=== PATIENT | female | born 1985 | race Caucasian/White ===

== ENCOUNTER → 2023-07-21 15:23 | Outpatient (CLI) | payer SELFPAY | PROVIDERS: PCP Physician Assistant; Visit Provider Physician Assistant | DX: R09.A2 Foreign body sensation, throat (principal) | CPT/HCPCS: 87070 ==

== ENCOUNTER → 2023-08-12 11:00 | Outpatient (CLI) | payer SELFPAY ==
[2023-08-12 19:19] LABS: Alanine Aminotransferase 22 IU/L (<35); Albumin 4.2 g/dL (3.5-5.0); Albumin Globulin Ratio 1.4 (1.0-2.8); Alkaline Phosphatase 51 U/L (38-126); Aspartate Aminotransferase 22 IU/L (14-36); BUN Creatinine Ratio 14.8 (6-22); Bilirubin Total 0.5 mg/dL (0.2-1.3); Blood Urea Nitrogen 9 mg/dL (7-17); Calcium 9.6 mg/dL (8.4-10.2); Carbon Dioxide 28 mmol/L (22-32); Chloride 104 mmol/L (98-107); Estimated Glomerular Filt Rate > 60 mL/min (>60); Glucose 98 mg/dL (70-100); HEMOLYSIS < 15 (0-50); Potassium 4.1 mmol/L (3.4-5.1); Sodium 138 mmol/L (137-145); Total Protein 7.2 g/dL (6.3-8.2)
[2023-08-12 19:25] LABS: Add Manual Diff / Slide Review NO; Basophils Absolute Auto 0 /uL (0-100); Eosinophils Absolute Auto 100 /uL (0-450); Eosinophils Percent Auto 1.5 % (2-4); Hemoglobin 12.3 g/dL (12.0-16.0); Lymphocytes Absolute Auto 1400 /uL (1100-4500); Lymphocytes Percent Auto 34.6 % (25-40); Mean Corpuscular HGB Conc 34.3 % (30-36); Mean Corpuscular Hemoglobin 30.1 PG (26-34); Mean Corpuscular Volume 87.8 fL (80-100); Monocytes Absolute Auto 400 /uL (0-900); Monocytes Percent Auto 8.8 % (3-14); Neutrophils Absolute Auto 2300 /uL (1500-7000); Neutrophils Percent Auto 54.1 % (50-75); Platelet Count 224 X10^3/uL (150-400); White Blood Cell Count 4.2 X10^3/uL (4.5-11.0)
[2023-08-12 19:47] LABS: TSH w/ Reflex to FT4 0.77 uIU/mL (0.47-4.68)
== END ==
PROVIDERS: PCP Physician Assistant; Visit Provider Physician Assistant
DX: G47.00 Insomnia, unspecified (principal); Z79.899 Other long term (current) drug therapy; L40.50 Arthropathic psoriasis, unspecified; R09.A2 Foreign body sensation, throat
CPT/HCPCS: 80053; 84443; 85025

== ENCOUNTER 2023-11-17 14:25 | Emergency (ER) | payer OTHER, SELFPAY ==
[2023-11-17] VITALS (8 sets, daily range): BP systolic 113–144; BP diastolic 59–80; PULSE 63–87; RESP 16–22; TEMP 36.8–37.1; O2SAT 98–100; BMI 23.8
--- NOTE | 2023-11-17 17:49 | PC.NURSE ---
On 11/03 patient pulled up her e-brake in her car and had sudden onset severe R clavicle pain. Since then she's had clavicle pain and starting 11/07 had tinnitus, hearing loss (R ear) and numbness on the R side of her face as well as deep aches in her chest. Health history includes a possible diagnosis of psoriatic arthritis.
--- NOTE | 2023-11-17 18:00 | ED_ITS ---
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 She states on November 03 she went to lift up the break in her car and with minimal effort noted severe pain in the right sternoclavicular joint that eventually developed quite a bit of swelling erythema tenderness. Symptoms progressed from there and by the she was developing tinnitus in the right ear which has progressed to the point that she has almost no hearing in the ear at all and describes very loud high-pitched tinnitus. She had seen her chiropractor did some gentle neck manipulation that did not change any of her symptoms. She is still having pain at the sternoclavicular joint, she is noticing numbness over the left side of her face including her forehead. When pressed, she does note that she has some mild paresthesia down the entire right side and describes a intermittent burning sensation localizing to the right hip area. She notes when she awakes in the morning she has significant numbness in the right upper extremity. She has not noticing any lower extremity abnormalities. On review of systems she notes she has had some mild swallowing difficulties predating the initial symptoms on the . She has a mild headache, she would dizziness initially but that is since resolved. No nausea, vomiting abdominal pain, syncope, chest pain, palpitations, abdominal pain Related Data Previous Rx's Medication Instructions Recorded propranolol 40 mg tablet 20 mg (1/2 x 40 mg) PO BID #30 tabs 08/05/23 zolpidem 5 mg tablet (Ambien) 5 mg PO BEDTIME PRN insomnia #10 08/12/23 tabs meloxicam 7.5 mg tablet 7.5 mg PO DAILY #30 tabs 08/19/23 dexamethasone 4 mg tablet 10 mg (2.5 x 4 mg) PO DAILY #5 tabs 11/17/23 Allergies Allergy/AdvReac Type Severity Reaction Status Date / Time cefixime Allergy Severe Anaphylaxis Verified 08/12/23 10:15 ciprofloxacin AdvReac Severe Vomiting Verified 08/12/23 10:15 Review of Systems Review of Systems Narrative: Pertinent positive and negative findings as per HPI Patient History Medical History (Updated 11/17/23 @ 21:23 by Laura Huertas MD) Plantar warts Eczema Osteoarthritis Asthma (~2014) Allergies (~2014) Migraines (~2011) ADHD Musculoskeletal pain Foot pain (~2021) Chronic back pain (~2009) Ankle pain (~2021) HSV-1 (herpes simplex virus 1) infection Tinnitus (~2011) Surgical History (Updated 07/25/23 @ 19:54 by Chela Hoang) Anesthesia History of laparoscopy (~2001) Family History (Updated 07/25/23 @ 19:58 by Chela Hoang) Father History of heart disease Cancer Hypertension Hyperlipidemia Mental health problem Mother Chronic gastritis Hyperlipidemia Hypertension Mental health problem Brother Hypertension Mental health problem PTSD (post-traumatic stress disorder) Sister Seizures Mental health problem Sister History of heart disease Mental health problem Schizophrenia Social History marital status: household members: spouse 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 Able to give a complete and coherent history. Well-nourished well-developed HEENT: Moist mucous membranes, normal sclera with reactive pupils, slight fullness along the entire right side of her neck compared to the left. Neck: No adenopathy, no carotid bruits. There is some fullness and tenderness to the right sternoclavicular joint. Decreased sensation to the right side of her face to fine touch. Respiratory: Lungs are clear to auscultation, no wheezing no rales no rhonchi. Full and symmetrical air movement Cardiac: Regular rate and rhythm no murmurs no bruits Abdomen: Soft, nontender, good bowel tones, no flank pain Skin: Warm and dry, no rashes Neurologic: Grossly neurologically intact with no obvious asymmetries or abnormalities. Right arm has full pulses throughout full range of motion of the arm not suggesting any type of vascular impingement Extremities: No trauma, well perfused Psych: Cooperative, appropriate insight and affect Course Orders Ordered: ED Orders 11/17/23 18:18 CT angio head and neck Stat 11/17/23 18:35 Complete Blood Count AUTO DIFF Stat Comprehensive Metabolic Panel Stat 11/17/23 19:58 MR head/brain wo/w con Stat Vital Signs Vital signs: Vital Signs - 8 hr 11/17/23 14:58 11/17/23 17:10 11/17/23 17:30 Temperature 98.4 F 98.3 F Pulse Rate 71 63 72 Respiratory Rate 16 16 22 Blood Pressure 139/80 118/59 L Pulse Oximetry 100 100 98 Oxygen Delivery Method Room Air Room Air 11/17/23 17:44 11/17/23 17:44 11/17/23 18:00 Temperature Pulse Rate 72 Respiratory Rate 20 Blood Pressure 128/74 113/70 Pulse Oximetry Oxygen Delivery Method 11/17/23 18:00 11/17/23 18:30 11/17/23 18:30 Temperature Pulse Rate 63 87 Respiratory Rate 18 21 Blood Pressure 144/75 H Pulse Oximetry 100 100 Oxygen Delivery Method 11/17/23 19:00 11/17/23 19:00 Temperature Pulse Rate 68 Respiratory Rate 18 Blood Pressure 115/71 Pulse Oximetry 98 Oxygen Delivery Method MDM - Headache Lab Data 11/17/23 18:35 11/17/23 18:35 Labs: Lab Results 11/17/23 Range/Units 18:35 WBC 7.8 (4.5-11.0) X10^3/uL RBC 4.26 (4.0-5.2) X10^6/uL Hgb 12.9 (12.0-16.0) g/dL Hct 37.4 (36-46) % MCV 87.8 (80-100) fL MCH 30.3 (26-34) PG MCHC 34.5 (30-36) % RDW 13.0 (11.6-14.8) % Plt Count 280 (150-400) X10^3/uL Neut % (Auto) 62.7 (50-75) % Lymph % (Auto) 29.5 (25-40) % Cherry % (Auto) 6.1 (3-14) % Eos % (Auto) 1.2 L (2-4) % Baso % (Auto) 0.5 (0-2) % Neut # (Auto) 4900 (2060-8116) /uL Lymph # (Auto) 2300 (5753-7351) /uL Cherry # (Auto) 500 (0-900) /uL Eos # (Auto) 100 (0-450) /uL Baso # (Auto) 0 (0-100) /uL Sodium 139 (137-145) mmol/L Potassium 3.7 (3.4-5.1) mmol/L Chloride 108 H (98-107) mmol/L Carbon Dioxide 24 (22-32) mmol/L BUN 16 (7-17) mg/dL Creatinine 0.68 (0.52-1.04) mg/dL Estimated GFR > 60 (>60) mL/min BUN/Creatinine Ratio 23.5 H (6-22) Glucose 85 (70-100) mg/dL Calcium 9.4 (8.4-10.2) mg/dL Total Bilirubin 0.4 (0.2-1.3) mg/dL AST 23 (14-36) IU/L ALT 16 (<35) IU/L Alkaline Phosphatase 73 (38-126) U/L Total Protein 8.1 (6.3-8.2) g/dL Albumin 4.6 (3.5-5.0) g/dL Globulin 3.5 (1.7-4.1) g/dL Albumin/Globulin Ratio 1.3 (1.0-2.8) Imaging Data CT angiogram head and neck: Radiologist's Impression: FINDINGS: Image quality: Limited by bolus timing, with venous contamination. There is streak artifact seen through the level of the shoulders. BRAIN: CSF spaces: Ventricles are normal in size and shape. Basal cisterns are patent. No extra-axial fluid collections. Brain: No significant abnormality of the brain can be seen. Skull and face: Calvarium and facial bones appear intact, without suspicious lesions. Orbits appear normal. Sinuses: Sinuses and mastoids are clear. HEAD CT ANGIOGRAPHY: Anterior circulation: Intracranial internal carotid arteries are normal in size and flow. The flow within the paired anterior cerebral arteries is normal and symmetric. The flow within the middle cerebral arteries is normal and symmetric. The anterior communicating artery is seen. No aneurysms are seen. Posterior circulation: Visualized portions of the vertebral arteries demonstrate normal caliber, and join to form a normal appearing basilar artery. Flow within the posterior cerebral arteries is normal and symmetric. No aneurysms are seen. NECK CT ANGIOGRAPHY: Carotid system: The great vessels demonstrate a conventional anatomy as they arise from the aortic arch. The origins of the common carotid arteries appear patent. The common carotid arteries demonstrate normal caliber and courses. The bifurcation regions are both widely patent. The internal carotid arteries demonstrate normal calibers and courses. Posterior circulation: The origins of the vertebral arteries both appear widely patent. The more superior extracranial portions of both vertebral arteries also demonstrate normal courses and calibers. The left vertebral artery is dominant to the right. Soft tissues: Visualized neck soft tissues demonstrate no suspicious abnormalities. Bones: No suspicious bony lesions. Visualized cervical spine appears normally aligned. Focal C6-C7 degenerative change can be seen. IMPRESSION: No imaging explanation is found for this patient's presenting symptoms. No significant intracranial arterial abnormality is seen. No significant abnormality is seen within the arteries of the neck. No findings of dissection can be seen. Any quantitative measurements of stenosis were performed using NASCET criteria. Dictated by: Alfred Burns M.D. on 11/17/2023 at 18:25 MRI brain: Radiologist's Impression: FINDINGS: Image quality: Excellent. CSF Spaces: Basal cisterns are patent. No extra-axial fluid collections. Ventricles are normal in size and shape. No abnormality or abnormal enhancement is seen in bilateral CP angles. Brain: No midline shift. No intracranial bleeds or masses. No abnormal intracranial enhancement. The brainstem appears normal. Diffusion-weighted images demonstrate no acute infarct. No chronic ischemic insults. Normal intravascular flow voids are present. Skull and face: Calvarial marrow is normal in signal. Orbits appear normal. Sinuses: Sinuses and mastoids appear clear. IMPRESSION: Unremarkable MRI examination of brain without and with contrast. No gross abnormality is seen in bilateral CP angles. Dictated by: Gabe Avalos M.D. on 11/17/2023 at 21:01 MDM Narrative Medical decision making narrative: CC: Progressive right neck, sternal and face paresthesias with progressive tinnitus Complicating co-morbidities: Otherwise healthy Data collected from: patient Medical records reviewed: Primary care notes from July Differential considered: Dissection, stroke, tumor or mass Exam documented above, pertinent findings include: Tinnitus with tympanic been brain unremarkable. Right side facial paresthesia without numbness. Pain at the sternoclavicular notch. Glove type distribution paresthesia to the right upper extremity Lab Test results independently reviewed as above. Pertinent findings: CBC is unremarkable Chemistries are reassuring Imaging studies independently reviewed: CT angiogram of the head and neck shows no obvious brain parenchymal abnormalities, intracranial hemorrhage and no obvious vascular abnormalities to explain her symptoms. MRI with and without of the brain does not show masses, tumors, obvious abnormalities or alternate explanations for her symptoms Treatments: 10 mg of dexamethasone Re-evaluations:8pm patient is updated on all initial findings. Understands need for MRI. Discussion: 38-year-old woman with 2 weeks of increasing right arm pain, pain at the sternoclavicular joint right side with some inflammation in the area and then paresthesias to the right side of her face and hearing loss with loud high- pitched tinnitus. CT angiogram of the head and neck as well as MRI of the brain show no obvious abnormality. Lab work is reassuring. No suggestion of stroke, mass, infection, vascular abnormality. All findings were shared with the patient. She is given the radiology reads of the imaging studies. She is given 10 mg of IV dexamethasone and will ask her to take an additional 10 mg on November 17 and November 18. We will suggest you follow up with her primary care physician and I suspect the next consultation should be back to rheumatology to see if there is a consolidating rheumatologic diagnosis to explain her symptoms. She is safe for discharge home Discharge Plan Departure Patient Disposition: Home Clinical Impression: Arm paresthesia, right, Facial paresthesia Tinnitus Qualifiers: Laterality: right Qualified Code(s): H93.11 - Tinnitus, right ear Activity Restrictions/Additional Instructions: Thank you for coming in today I can tell you with some confidence that you are not having a stroke, there are no masses or tumors in your brain or along your ear canal. There was no bleeding inside your brain and there are no vascular abnormalities or dissections that might explain your symptoms Unfortunately, I can not tell you what is causing the problem. I have given you 10 mg of IV dexamethasone and will suggest an additional 10 mg orally on November 17 and November 18. This likely will help with the inflammatory changes. 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 If you find that you are getting worse or develop any new symptoms, please feel free to return to the emergency department for further evaluation. Prescriptions: New dexamethasone 4 mg tablet 10 mg PO DAILY Qty: 5 0RF No Action propranolol 40 mg tablet 20 mg PO BID Qty: 30 0RF meloxicam 7.5 mg tablet 7.5 mg PO DAILY Qty: 30 3RF zolpidem [Ambien] 5 mg tablet 5 mg PO BEDTIME PRN (Reason: insomnia) Qty: 10 0RF Rx Instructions: may repeat once if no response in 30-60 minutes Referrals: Florencia Gautam PA-C [Primary Care Provider] - Stand Alone Forms: Patient Portal/API
--- NOTE | 2023-11-17 18:18 | DI.CT.S_ITS ---
PROCEDURE: CT ANGIO HEAD AND NECK INDICATIONS: Right-sided neck pain, facial numbness and severe tinnitus w TECHNIQUE: After the administration of intravenous contrast, 1 mm thick sections acquired from the aortic arch through the [place] of [place]. 3-dimensional yvrmclj-dbdwwtsmr-fvmwlyropt (MIP) and/or volume rendering reformats were acquired of the central intracranial vasculature and neck separately. For radiation dose reduction, the following was used: automated exposure control, adjustment of mA and/or kV according to patient size. COMPARISON: None. FINDINGS: Image quality: Limited by bolus timing, with venous contamination. There is streak artifact seen through the level of the shoulders. BRAIN: CSF spaces: Ventricles are normal in size and shape. Basal cisterns are patent. No extra-axial fluid collections. Brain: No significant abnormality of the brain can be seen. Skull and face: Calvarium and facial bones appear intact, without suspicious lesions. Orbits appear normal. Sinuses: Sinuses and mastoids are clear. HEAD CT ANGIOGRAPHY: Anterior circulation: Intracranial internal carotid arteries are normal in size and flow. The flow within the paired anterior cerebral arteries is normal and symmetric. The flow within the middle cerebral arteries is normal and symmetric. The anterior communicating artery is seen. No aneurysms are seen. Posterior circulation: Visualized portions of the vertebral arteries demonstrate normal caliber, and join to form a normal appearing basilar artery. Flow within the posterior cerebral arteries is normal and symmetric. No aneurysms are seen. NECK CT ANGIOGRAPHY: Carotid system: The great vessels demonstrate a conventional anatomy as they arise from the aortic arch. The origins of the common carotid arteries appear patent. The common carotid arteries demonstrate normal caliber and courses. The bifurcation regions are both widely patent. The internal carotid arteries demonstrate normal calibers and courses. Posterior circulation: The origins of the vertebral arteries both appear widely patent. The more superior extracranial portions of both vertebral arteries also demonstrate normal courses and calibers. The left vertebral artery is dominant to the right. Soft tissues: Visualized neck soft tissues demonstrate no suspicious abnormalities. Bones: No suspicious bony lesions. Visualized cervical spine appears normally aligned. Focal C6-C7 degenerative change can be seen. IMPRESSION: No imaging explanation is found for this patient's presenting symptoms. No significant intracranial arterial abnormality is seen. No significant abnormality is seen within the arteries of the neck. No findings of dissection can be seen. Any quantitative measurements of stenosis were performed using NASCET criteria. Dictated by: Alfred Burns M.D. on 11/17/2023 at 18:25 Approved by: Alfred Burns M.D. on 11/17/2023 at 18:27
[2023-11-17 18:48] LABS: Add Manual Diff / Slide Review NO; Basophils Absolute Auto 0 /uL (0-100); Basophils Percent Auto 0.5 % (0-2); Eosinophils Absolute Auto 100 /uL (0-450); Eosinophils Percent Auto 1.2 % (2-4); Hematocrit 37.4 % (36-46); Hemoglobin 12.9 g/dL (12.0-16.0); Lymphocytes Absolute Auto 2300 /uL (1100-4500); Lymphocytes Percent Auto 29.5 % (25-40); Mean Corpuscular HGB Conc 34.5 % (30-36); Mean Corpuscular Hemoglobin 30.3 PG (26-34); Mean Corpuscular Volume 87.8 fL (80-100); Monocytes Absolute Auto 500 /uL (0-900); Monocytes Percent Auto 6.1 % (3-14); Neutrophils Absolute Auto 4900 /uL (1500-7000); Neutrophils Percent Auto 62.7 % (50-75); Platelet Count 280 X10^3/uL (150-400); Red Blood Cell Count 4.26 X10^6/uL (4.0-5.2); White Blood Cell Count 7.8 X10^3/uL (4.5-11.0)
[2023-11-17 19:05] LABS: Alanine Aminotransferase 16 IU/L (<35); Albumin 4.6 g/dL (3.5-5.0); Albumin Globulin Ratio 1.3 (1.0-2.8); Alkaline Phosphatase 73 U/L (38-126); Aspartate Aminotransferase 23 IU/L (14-36); BUN Creatinine Ratio 23.5 (6-22); Bilirubin Total 0.4 mg/dL (0.2-1.3); Blood Urea Nitrogen 16 mg/dL (7-17); Calcium 9.4 mg/dL (8.4-10.2); Carbon Dioxide 24 mmol/L (22-32); Chloride 108 mmol/L (98-107); Estimated Glomerular Filt Rate > 60 mL/min (>60); Globulin 3.5 g/dL (1.7-4.1); Glucose 85 mg/dL (70-100); HEMOLYSIS < 15 (0-50); Potassium 3.7 mmol/L (3.4-5.1); Sodium 139 mmol/L (137-145); Total Protein 8.1 g/dL (6.3-8.2)
--- NOTE | 2023-11-17 19:58 | DI.MRI.S_ITS ---
PROCEDURE: MR HEAD/BRAIN WO/W CON INDICATIONS: acute hearing loss Right ear, Right side paresthesia, headache TECHNIQUE: Noncontrast axial T1 spin echo, axial T2 fast spin echo, sagittal and axial FLAIR, coronal T2 fast spin echo, axial gradient echo, axial diffusion and ADC through the brain. After the administration of contrast, axial and coronal and sagittal 3D VIBE or T1 spin echo with fat saturation through the brain. COMPARISON: [facility] [place] [facility], CT, CT ANGIO HEAD AND NECK, 11/17/2023, 19:14. FINDINGS: Image quality: Excellent. CSF Spaces: Basal cisterns are patent. No extra-axial fluid collections. Ventricles are normal in size and shape. No abnormality or abnormal enhancement is seen in bilateral CP angles. Brain: No midline shift. No intracranial bleeds or masses. No abnormal intracranial enhancement. The brainstem appears normal. Diffusion-weighted images demonstrate no acute infarct. No chronic ischemic insults. Normal intravascular flow voids are present. Skull and face: Calvarial marrow is normal in signal. Orbits appear normal. Sinuses: Sinuses and mastoids appear clear. IMPRESSION: Unremarkable MRI examination of brain without and with contrast. No gross abnormality is seen in bilateral CP angles. Dictated by: Gabe Avalos M.D. on 11/17/2023 at 21:01 Approved by: Gabe Avalos M.D. on 11/17/2023 at 21:03
[2023-11-17] MEDS: DEXAMETHASONE 10 MG/ML VIAL IV (21:28)
[2023-11-17] MEDS: OXYCODONE/APAP 5/325 PREPACK 1 BOTTLE MISC (21:53)
== END 2023-11-17 21:56 | disposition home or self-care (01) ==
PROVIDERS: Emergency Provider Emergency Medicine; PCP Physician Assistant
DX: R20.2 Paresthesia of skin (principal); H93.11 Tinnitus, right ear; M54.2 Cervicalgia; H91.91 Unspecified hearing loss, right ear
CPT/HCPCS: 36415; 70496; 70498; 70553; 80053; 85025; 96374; 99284; A9579; J1100; Q9967

== ENCOUNTER → 2024-07-19 08:42 | Outpatient (CLI) | payer BC, SELFPAY ==
[2024-06-28 14:09] LABS: Fecal Immunochemical Test Negative (Negative)
== END ==
PROVIDERS: PCP Physician Assistant; Referring Provider Physician Assistant; Visit Provider Physician Assistant
DX: Z20.7 Contact with and (suspected) exposure to pediculosis, acariasis and other infestations (principal); R19.5 Other fecal abnormalities; Z12.11 Encounter for screening for malignant neoplasm of colon
CPT/HCPCS: 82274; 87177

== ENCOUNTER → 2024-11-15 10:25 | Outpatient (CLI) | payer BC, SELFPAY | PROVIDERS: PCP Physician Assistant; Visit Provider Nurse Practitioner Adult Health | DX: N89.8 Other specified noninflammatory disorders of vagina (principal) | CPT/HCPCS: 87798; 87801 ==